=== PATIENT | male | born 1990 | race Hispanic/Latino ===

== ENCOUNTER 2024-12-21 17:43 | Emergency (ER) | payer BC ==
[2024-12-21] MEDS ORDERED: NA CHLORIDE 0.9% 1,000 ML ONE (18:09)
[2024-12-21 18:23] LABS: Absolute Basophils 0.1 K/uL (0-0.5); Absolute Eosinophils 0.4 K/uL (0-0.5); Absolute Monocytes 0.7 K/uL (0.1-1.3); Absolute Neutrophil 4.2 K/uL (1.8-8.0); Hematocrit 45.7 % (39.6-49.0); Hemoglobin 15.7 g/dL (13.6-17.9); Lymphocytes % 27.8 % (15.3-44.8); MCH 30.8 pg (27.0-35.0); MCHC 34.4 g/dL (32.0-36.0); MCV 89.4 fL (80-100); MPV 9.1 fL (7.6-11.3); Monocytes % 9.1 % (3.3-12.3); Neutrophils % 57.1 % (41.7-73.7); Platelets 217 thou/uL (152-406); RBC Red Blood Cell Count 5.11 M/uL (4.33-5.43); Red Cell Distribution Width 13.4 % (12.1-15.2)
[2024-12-21 18:38] LABS: Albumin 3.7 g/dL (3.4-5.0); Albumin/Globulin Ratio 0.9 (1.1-1.8); Anion Gap 7.8 mEq/L (5.0-15.0); Bilirubin Total 0.5 mg/dL (0.2-1.0); Potassium 3.8 mEq/L (3.5-5.1); Protein, Total 7.7 g/dL (6.4-8.2)
[2024-12-21 18:56] LABS: Specific Gravity 1.026 (1.005-1.030); Sqamous Epithelial None Seen /HPF (None Seen); Urine Bacteria None Seen /HPF (<20); Urine Bilirubin NEGATIVE (Negative); Urine Blood 2+ (Negative); Urine Clarity Clear (Clear); Urine Color Light-Yellow (Yellow); Urine Crystals Unidentified Few /HPF (None Seen); Urine Culture Reflex Order NOT NEEDED; Urine Glucose NEGATIVE (Negative); Urine Ketones NEGATIVE (Negative); Urine Microscopic Reflex YN ORDER UMIC; Urine Mucus Slight /HPF (None Seen); Urine Nitrite NEGATIVE (Negative); Urine Protein NEGATIVE (Negative); Urine Urobilinogen Normal (Normal); Urine WBC <5 /HPF (<5)
[2024-12-21] MEDS ORDERED: MORPHINE 4 MG/ML SYR ONE (19:47)
[2024-12-21] MEDS ORDERED: ONDANSETRON 4 MG/2 ML VIAL ONE (19:47)
--- NOTE | 2024-12-21 19:48 | RAD REPORT ---
EXAMINATION: CT Abdomen Pelvis W Contrast CLINICAL INDICATION: Male, 34 years old. ABD PAIN TECHNIQUE: CT abdomen and pelvis was performed, after the administration of IV contrast, as per [facility] protocol. Axial, sagittal and coronal reconstructions were obtained. One or more of the following dose reduction techniques were used: Automated exposure control, adjustment of the mA and k V according to patient size, and iterative reconstruction. Unless otherwise specified, incidental findings do not require dedicated imaging follow-up. COMPARISON: No prior exam. FINDINGS: LOWER CHEST: The visualized lung bases are clear. LIVER: Normal in size and contour. No focal lesion. BILIARY SYSTEM: Gallbladder is decompressed limiting evaluation. No suspicious abnormalities. SPLEEN: Normal size. No focal lesion. PANCREAS: No mass, ductal dilation, or suyapa-pancreatic fluid. ADRENALS: Normal; no mass. KIDNEYS: Normal size and contour. No hydronephrosis. URINARY BLADDER: Unremarkable. GASTROINTESTINAL TRACT: No evidence of free air, significant intra-abdominal free fluid, bowel obstru ction or abscess. APPENDIX: Normal appendix. LYMPH NODES: No lymphadenopathy. MUSCULOSKELETAL: No acute or suspicious osseous abnormality. ADDITIONAL FINDINGS: None. IMPRESSION: No acute or concerning abnormalities seen in the abdomen or pelvis.
--- NOTE | 2024-12-21 21:25 | ER ---
Nurse's Notes [facility] Name: Parviz Orlando Jr Age: 34 yrs Sex: Male : 1990 Arrival Date: 12/21/2024 Time: 17:43 Bed 13 Private MD: Diagnosis: Lower abdominal pain, unspecified Presentation: 12/21 17:51 Chief complaint: Patient states: RLQ and right testicle pain that started about 1 pm me1 today. pain 7/10. Denies injury. Coronavirus screen: Vaccine status: Patient reports receiving the 2nd dose of the covid vaccine. Ebola Screen: No symptoms or risks identified at this time. Initial Sepsis Screen: Does the patient meet any 2 criteria? No. Patient's initial sepsis screen is negative. Does the patient have a suspected source of infection? No. Patient's initial sepsis screen is negative. Risk Assessment: Do you want to hurt yourself or someone else? Patient reports no desire to harm self or others. Onset of symptoms was December 21, 2024 at 13:00. 17:51 Method Of Arrival: Ambulatory wy1 17:51 Acuity: ROJELIO 3 me1 Triage Assessment: 18:50 General: Appears in no apparent distress. uncomfortable, well groomed, well developed, me1 well nourished, Behavior is calm, cooperative, appropriate for age. Pain: Complains of pain in right lower quadrant and right testicle Pain does not radiate. Pain currently is 7 out of 10 on a pain scale. Quality of pain is described as sharp, Pain began suddenly, Is continuous. EENT: No signs and/or symptoms were reported regarding the EENT system. Neuro: Level of Consciousness is awake, alert, obeys commands, Oriented to person, place, time, situation, Appropriate for age. Cardiovascular: Patient's skin is warm and dry. Respiratory: Airway is patent Respiratory effort is even, unlabored, Respiratory pattern is regular, symmetrical. GI: Abdomen is non-distended, Bowel sounds present X 4 quads. Reports lower abdominal pain, right testicle pain. : No signs and/or symptoms were reported regarding the genitourinary system. Derm: Skin is intact, is healthy with good turgor, Skin is pink, warm \T\ dry. Musculoskeletal: No signs and/or symptoms reported regarding the musculoskeletal system. Historical: - Allergies: 18:50 No Known Allergies; me1 - Home Meds: 18:50 None [Active]; me1 - PMHx: 18:50 None; me1 - PSHx: 18:50 Vasectomy; me1 - Immunization history:: Adult Immunizations up to date. - Infectious Disease History:: Denies. - Social history:: Smoking status: Patient denies any tobacco usage or history of. Screenin:51 [facility] ED Fall Risk Assessment (Adult) History of falling in the last 3 months, me1 including since admission No falls in past 3 months (0 pts) Confusion or Disorientation No (0 pts) Intoxicated or Sedated No (0 pts) Impaired Gait No (0 pts) Mobility Assist Device Used No (0 pt) Altered Elimination No (0 pt) Score/Fall Risk Level 0 - 2 = Low Risk Maintained a safe environment, Provided non-skid footwear, Hourly rounding (assess needs \T\ fall precautionary measures) done. Abuse screen: Denies threats or abuse. Nutritional screening: No deficits noted. Tuberculosis screening: No symptoms or risk factors identified. Assessment: 18:51 General: See triage assessment. GI: Abd is soft X 4 quads. me1 Vital Signs: 17:51 BP 114 / 82; Pulse 74; Resp 18; Temp 98.4; Pulse Ox 99% ; Weight 68.49 kg; Height 5 ft. me1 4 in. ; Pain 7/10; 19:00 BP 117 / 80; Pulse 78; Resp 16; Pulse Ox 100% ; me1 20:00 BP 122 / 77; Pulse 77; Resp 16; Pulse Ox 99% ; me1 21:00 BP 123 / 76; Pulse 73; Resp 14; Temp 98.4; Pulse Ox 98% ; me1 17:51 Body Mass Index 25.92 (68.49 kg, 162.56 cm) me1 17:51 Pain Scale: Adult wy1 ED Course: 17:47 Patient arrived in ED. im 17:56 [facility]C [facility] 17:56 Manuel Davis MD is Attending Physician. dr5 18:04 Charlene Edwards, CESAR is Primary Nurse. me1 18:46 Urinalysis w/ reflexes Sent. me1 18:47 Urine collected: clean catch specimen, clear. me1 18:50 Triage completed. me1 18:50 Arm band placed on Patient placed in an exam room. me1 18:51 No provider procedures requiring assistance completed. Inserted saline lock: 22 gauge me1 in right antecubital area, using aseptic technique. 18:51 Patient has correct armband on for positive identification. Bed in low position. Call me1 light in reach. Side rails up X2. Provided Education on: POC. Verbalized understanding.. Client placed on continuous cardiac and pulse oximetry monitoring. NIBP monitoring applied. Pulse ox on. NIBP on. 19:17 CT Abd/Pelvis - IV Contrast Only In Process Unspecified. EDMS 21:39 IV discontinued, intact, bleeding controlled, No redness/swelling at site. Pressure me1 dressing applied. Administered Medications: 18:39 Drug: NS 0.9% IV 1000 ml IV at 1 bolus Per protocol; to be given as a bolus over 60 me1 minutes Route: IV; Rate: 1 bolus; Site: right antecubital; 21:34 Follow up: Response: No adverse reaction; IV Status: Completed infusion; IV Intake: me1 1000ml 20:01 Drug: morphine IVP or IV 4 mg IVP once over 4 mins Route: IVP; Infused Over: 4 mins; me1 Site: right antecubital; 21:34 Follow up: Response: No adverse reaction; Pain is decreased me1 20:01 Drug: Ondansetron IVP 4 mg IVP once; over 2 minutes Route: IVP; Site: right antecubital;me1 21:35 Follow up: Response: No adverse reaction; Nausea is decreased me1 Medication: 18:51 VIS not applicable for this client. me1 Intake: 21:34 IV: 1000ml; Total: 1000ml. me1 Outcome: 21:24 Discharge ordered by . dr5 21:39 Discharged to home ambulatory, with family, me1 21:39 Condition: stable 21:39 Discharge instructions given to patient, Instructed on discharge instructions, follow up and referral plans. medication usage, Demonstrated understanding of instructions, follow-up care, medications, Prescriptions given X 2, 21:39 Patient left the ED. me1 Signatures: Dispatcher [employer] EDLA Ann Ramos Michelle, RN RN me1 Marvin Kwon, MACHINE TAPER-C MACHINE TAPER-Cdr5
--- NOTE | 2024-12-21 21:25 | EDPHYS ---
Physician Documentation [facility] Name: Parviz Orlando Jr Age: 34 yrs Sex: Male : 1990 Arrival Date: 12/21/2024 Time: 17:43 Bed 13 Private MD: ED Physician Manuel Davis HPI: 12/21 18:33 This 34 yrs old Male presents to ER via Unassigned with complaints of dr5 Abdominal Pain, Testicular Pain. 18:33 The patient presents with abdominal pain right lower quadrant. Onset: The dr5 symptoms/episode began/occurred yesterday. 18:33 Patient is a 34 year old male presenting with right lower quadrant abdominal pain that dr5 started today. Patient reports the pain starts in his RLQ and radiates down to his right testicle. Patient has hx of vasectomy in the past.. Historical: - Allergies: 18:50 No Known Allergies; me1 - Home Meds: 18:50 None [Active]; me1 - PMHx: 18:50 None; me1 - PSHx: 18:50 Vasectomy; me1 - Immunization history:: Adult Immunizations up to date. - Infectious Disease History:: Denies. - Social history:: Smoking status: Patient denies any tobacco usage or history of. ROS: 18:33 Constitutional: as per hpi dr5 Exam: 18:33 Constitutional: This is a well developed, well nourished patient who is awake, alert, dr5 and in no acute distress. Head/Face: Normocephalic, atraumatic. Eyes: Pupils equal round and reactive to light, extra-ocular motions intact. Lids and lashes normal. Conjunctiva and sclera are non-icteric and not injected. Cornea within normal limits. Periorbital areas with no swelling, redness, or edema. Neck: Trachea midline, no thyromegaly or masses palpated, and no cervical lymphadenopathy. Supple, full range of motion without nuchal rigidity, or vertebral point tenderness. No Meningismus. Chest/axilla: Normal chest wall appearance and motion. Nontender with no deformity. No lesions are appreciated. Cardiovascular: Regular rate and rhythm with a normal S1 and S2. Normal PMI, no JVD. No pulse deficits. Respiratory: Lungs have equal breath sounds bilaterally, clear to auscultation. No rales, rhonchi or wheezes noted. No increased work of breathing, no retractions or nasal flaring. Back: No spinal tenderness. No costovertebral tenderness. Full range of motion. Skin: Warm, dry with normal turgor. Normal color with no rashes, no lesions, and no evidence of cellulitis. Neuro: Awake and alert, GCS 15, oriented to person, place, time, and situation. Cranial nerves II-XII grossly intact. Motor strength 5/5 in all extremities. Sensory grossly intact. Cerebellar exam normal. Normal gait. 18:33 Abdomen/GI: Inspection: abdomen appears normal, Bowel sounds: normal, Palpation: moderate abdominal tenderness, in the right lower quadrant, Vital Signs: 17:51 BP 114 / 82; Pulse 74; Resp 18; Temp 98.4; Pulse Ox 99% ; Weight 68.49 kg; Height 5 ft. me1 4 in. ; Pain 7/10; 19:00 BP 117 / 80; Pulse 78; Resp 16; Pulse Ox 100% ; me1 20:00 BP 122 / 77; Pulse 77; Resp 16; Pulse Ox 99% ; me1 21:00 BP 123 / 76; Pulse 73; Resp 14; Temp 98.4; Pulse Ox 98% ; me1 17:51 Body Mass Index 25.92 (68.49 kg, 162.56 cm) me1 17:51 Pain Scale: Adult me1 MDM: 17:56 Medical Screening Exam initiated dr5 18:35 ED course: Concerns for appendicitis. Will get CTAP. Offered patient pain medications dr5 but declines morphine and zofran at this time. I told him to let me know if he would like something for pain and I would be happy to provider him with medications.. 12/22 00:59 Differential diagnosis: appendicitis, diverticulitis, non-specific abd pain, urinary dr5 tract infection. Data reviewed: vital signs, nurses notes. I considered the following discharge prescriptions or medication management in the emergency department Medications were administered in the Emergency Department. See MAR. Historians other than the Patient: Parent: Mother. Care significantly affected by the following Social Determinants of Health: Poor access to healthcare and/or lack of insurance, Poor access to transportation, Problems related to employment. Counseling: I had a detailed discussion with the patient and/or guardian regarding the historical points, exam findings, and any diagnostic results supporting the discharge/admit diagnosis, the presence of at least one elevated blood pressure reading (>120/80) during this emergency department visit, lab results, radiology results, the need for outpatient follow up, for definitive care, a family practitioner, to return to the emergency department if symptoms worsen or persist or if there are any questions or concerns that arise at home. Medication response: morphine relieved the patient's pain. Symptoms have resolved, Zofran relieved the patient's nausea. ED course: Patient is pain-free at this time. CT results as well as blood work went over with patient. No appendicitis or abnormalities on CT scan. Will have patient follow-up primary care doctor this week. CT results as well as blood work printed out and given to patient. All questions answered. Reexamination of abdomen was unremarkable. Patient is feeling much better.. 12/21 18:05 Order name: CBC with Diff; Complete Time: 18:29 dr5 12/21 18:05 Order name: CMP; Complete Time: 18:40 [facility] 12/21 18:05 Order name: Lipase; Complete Time: 18:40 dr5 12/21 18:05 Order name: Urinalysis w/ reflexes; Complete Time: 19:10 dr5 12/21 18:05 Order name: CT Abd/Pelvis - IV Contrast Only; Complete Time: 19:49 dr5 12/21 18:05 Order name: IV Saline Lock; Complete Time: 18:39 dr5 12/21 18:05 Order name: Labs collected and sent; Complete Time: 18:39 dr5 Administered Medications: 12/21 18:39 Drug: NS 0.9% IV 1000 ml IV at 1 bolus Per protocol; to be given as a bolus over 60 me1 minutes Route: IV; Rate: 1 bolus; Site: right antecubital; 21:34 Follow up: Response: No adverse reaction; IV Status: Completed infusion; IV Intake: me1 1000ml 20:01 Drug: morphine IVP or IV 4 mg IVP once over 4 mins Route: IVP; Infused Over: 4 mins; me1 Site: right antecubital; 21:34 Follow up: Response: No adverse reaction; Pain is decreased me1 20:01 Drug: Ondansetron IVP 4 mg IVP once; over 2 minutes Route: IVP; Site: right antecubital;me1 21:35 Follow up: Response: No adverse reaction; Nausea is decreased me1 Disposition: 12/22 10:56 Co-signature as Attending Physician, Manuel Davis MD I reviewed the patient's care rn provided by the Advanced Practice Provider and agree with the diagnosis and treatment plan. Disposition Summary: 12/21/24 21:24 Discharge Ordered Notes: Location: Home dr5 Condition: Stable dr5 Diagnosis - Lower abdominal pain, unspecified dr5 Followup: dr5 - With: Emergency Department - When: As needed - Reason: Worsening of condition Followup: dr5 - With: Private Physician - When: 1 - 2 days - Reason: Recheck today's complaints, Continuance of care, Re-evaluation by your physician Discharge Instructions: - Discharge Summary Sheet dr5 - Abdominal Pain, Adult dr5 Forms: - Medication Reconciliation Form dr5 - Antibiotic Education dr5 - Patient Portal Instructions dr5 - Leadership Thank You Letter dr5 Prescriptions: - Zofran 4 mg Oral Tablet - take 1 tablet ORAL route every 12 hours As needed; 20 tablet; Refills: 0, dr5 Product Selection Permitted - Tramadol 50 mg Oral Tablet - take 1 tablet ORAL route every 8 hours as needed; 12 tablet; Refills: 0, dr5 Product Selection Permitted Signatures: Dispatcher [employer] EDManuel Arguello MD MD rn Eddleman, Michelle, RN RN me1 Marvin Kwon, PHYSIOGNOMIST-C PHYSIOGNOMIST-Cdr5
[2024-12-21 22:00] VITALS: TEMP 98.4
[2024-12-21 22:05] VITALS: BP 123/76; O2SAT 98
== END 2024-12-21 21:39 | disposition home or self-care (01) ==
LOC: ER 17:43
DX: R10.31 Right lower quadrant pain (principal)
CPT/HCPCS: 96361; 85025; 81001; 36415; 83690; 80053; 74177; 96375; 96374; 99284; Q9967; J2405; J7030